=== PATIENT | female | born 2000 | race Caucasian/White ===

== ENCOUNTER 2024-12-25 20:25 | Emergency (ER) | payer BC, SELFPAY ==
[2024-12-25 20:26] VITALS: BMI 21.0
[2024-12-25 20:48] VITALS: BP 150/99; PULSE 86; RESP 18; TEMP 36.8; O2SAT 100
--- NOTE | 2024-12-25 21:30 | EDNOTE_ITS ---
Upper Respiratory Inf. RME/HPI General Chief Complaint: Flu Like Symptoms Stated Complaint: POSSIBLE STREP Time Seen by Provider: 12/25/24 21:00 Arrival date/time: 12/25/24 20:25 24F with no significant PMH presents to ED with 1 day of sore throat and nasal congestion. Limitations: no limitations Related Data Previous Rx's ?Medication ?Instructions ?Recorded albuterol sulfate 90 mcg/actuation 1 - 2 puff inhalati on Q6HR PRN 07/12/16 aerosol inhaler (ProAir HFA) WHEEZING #1 inh ibuprofen 600 mg tablet 1 tab PO Q8HR PRN pain or fe albina 07/12/16 #30 tabs Allergies Allergy/AdvReac Type Severity Reaction Status Date / Time NKA* Allergy Uncoded 07/12/16 19:10 Review of Systems Review of Systems Systems Reviewed: All systems reviewed, normal except as documented Constitutional Constitutional: Reports system reviewed and no additional complaints, except as documented, Denies fever(s) and Denies headache(s) ENT Ears, Nose, Mouth, and Throat: Reports as per HPI, Denies disequilibrium, Denies headache(s) and Reports sore throat Cardiovascular Cardiovascular: Reports system reviewed and no additional complaints, except as documented, Denies chest pain and Denies dyspnea Respiratory Respiratory: Reports system reviewed and no additional complaints, except as documented, Reports as per HPI, Reports cough and Denies dyspnea Gastrointestinal Gastrointestinal: Reports system reviewed and no additional complaints, except as documented, Denies abdominal pain, Denies nausea and Denies vomiting Neurologic Neurologic: Reports system reviewed and no additional complaints, except as documented, Denies confusion, Denies disequilibrium and Denies headache(s) Psychiatric Psychiatric: Denies confusion Past Medical History Social History SMOKING STATUS: Never smoker ED Exam General Limitations: Present no limitations General appearance: Present alert and in no apparent distress Head Head exam: Present atraumatic Eye Eye exam: Present normal appearance, PERRL and EOMI ENT ENT exam: Present mucous membranes moist Expanded ENT Exam Throat exam: Present tonsillar erythema; Absent tonsillomegaly, tonsillar exudate, R peritonsillar mass, L peritonsillar mass or muffled voice Neck Neck exam: Present normal inspection, full ROM and trachea midline Chest Chest inspection: Present normal inspection and symmetric chest wall rise Respiratory Respiratory exam: Present normal lung sounds bilaterally Cardiovascular Cardiovascular exam: Present regular rate, normal rhythm and normal heart sounds Abdominal Exam Abdominal exam: Present soft and normal bowel sounds Extremities Exam Extremities exam: Present normal inspection and full ROM Back Exam Back exam: Present normal inspection and full ROM Neurological Exam Neurological exam: Present alert, oriented X3 and CN II-XII intact Psychiatric Psychiatric exam: Present normal affect and normal mood Skin Skin exam: Present warm, dry, intact and normal color Course Quality Measures none Orders Category Date Time Status Bedside Influenza A&B Antigen Test NOW Care 12/25/24 21:00 Completed Strep A Rapid Stat Lab 12/25/24 21:38 Completed Vital Signs Vital signs: Vital Signs Temperature 98.2 F 12/25/24 20:48 Pulse Rate 86 12/25/24 20:48 Respiratory Rate 18 12/25/24 20:48 Blood Pressure 150/99 H 12/25/24 20:48 Pulse Oximetry (%) 100 12/25/24 20:48 Oxygen Delivery Method Room Air 12/25/24 20:48 O2 at 100% on RA and WNLs Upper Respiratory Infection MDM Narrative MDM Narrative:: 24F with no significant PMH presents to ED with 1 day of sore throat and nasal congestion. Physical exam reveals nasal congestion and red oropharynx, but clear lungs. Patient is afebrile, calm, and alert. Swabs neg. Likely viral URI. Patient data External records reviewed:: [facility] previous records Clinical information provided by:: patient Social determinants that could affect healthcare access:: none Patient has the following chronic illnesses:: none How is presenting disease/condition affected by chronic disease/condition?: no chronic disease Evaluation data The following diagnostics were reviewed and interpreted by me:: lab results Lab and/or radiology exams considered but not ordered:: ordered Interpretation Summary: above Medications / Prescriptions Medications or Prescriptions considered but not ordered:: not ordered Medication administrations:: n/a Consultations Consultation(s) initiated? (list below): No Diagnosis Upper Respiratory Differential Diagnosis: upper respiratory infection, croup, otitis media, sinusitis, viral infection, bronchitis, influenza and pharyngitis Most likely diagnosis given after review of the tests above:: URI Admission Indicated Admission indicated?: not indicated Admission Request Was there a request for admission?: No Disposition Plan Disposition Plan: Discharge Discharge Attestation Discharge Attestation: The patient and all family members were given an opportunity to ask questions and understood the discharge instructions. Discharge instructions specifically effects, indications for sooner follow up or return to the emergency department, and the expected course of current diagnosis. Patient condition: Stable Discharge Plan Plan Patient Disposition: HOME (Self Care) Disposition Comment: Stable Prescriptions/Referrals Prescriptions/Med Rec: No Action ibuprofen 600 MG tablet 1 tab PO Q8HR PRN (Reason: pain or fever) Qty: 30 0RF albuterol sulfate [ProAir HFA] 8.5 GM HFA aerosol inhaler 1 - 2 puff Inhalation Q6HR PRN (Reason: WHEEZING) Qty: 1 0RF Rx Instructions: Please give and use spacer Problem List Clinical Impression: Upper respiratory infection Patient/Caregiver Discharge Instructions Education Materials: ED URI, Viral, No Abx (Adult) Additional Instructions: Please follow-up with PCP within 24-48 hours and return immediately if symptoms worsen. Ibuprofen/Tylenol can be used simultaneously for greater fever/pain control. Benadryl is good for cough, congestion, and sleep. Print Language: Georgian Stand Alone Forms: Patient Portal Info Letter PEGGY/PURNIMA Supervising Physician PEGGY/PURNIMA Supervising Physician: Dr. Scott
[2024-12-25 23:01] LABS: Strep A Rapid Negative (Negative)
== END 2024-12-26 | disposition home or self-care (01) ==
LOC: SERX 23:50
PROVIDERS: Physician Assistant; Emergency Provider Emergency Medicine
DX: J06.9 Acute upper respiratory infection, unspecified (principal)
CPT/HCPCS: 87400; 87651; 99283

== ENCOUNTER 2025-06-24 22:14 | Emergency (ER) | payer BC, SELFPAY ==
[2025-06-24 22:19] VITALS: BMI 21.0
[2025-06-24 22:42] VITALS: BP 117/81; PULSE 98; RESP 19; TEMP 36.7; O2SAT 100
--- NOTE | 2025-06-24 23:16 | XR_ITS ---
Examination: PA chest single view TECHNIQUE: Upright PA chest single view Date and time: June 24, 2025 11:39 PM Comparison February 28, 2006 INDICATIONS: Chest pain shortness of breath beginning 3 days ago. FINDINGS: Normal heart size. Lungs are clear. Osseous structures are intact. IMPRESSION: No active disease
[2025-06-24 23:48] LABS: Basophils # (Auto) 0.1 Thou/mm3 (0.0-0.2); Basophils % (Auto) 1 % (0-2.5); Eosinophils # (Auto) 0.2 Thou/mm3 (0.0-0.5); Eosinophils % (Auto) 3 % (0-10); Hematocrit 46.8 % (36.0-46.0); Hemoglobin 15.8 g/dL (12.0-16.0); Immature Granulocytes Auto 0.03 Thou/mm3 (0.00-0.00); Lymphocytes # (Auto) 3.2 Thou/mm3 (1.0-4.8); Lymphocytes % (Auto) 36 % (10-50); Mean Corpuscular HGB Conc 33.8 g/dl (31.0-37.0); Mean Corpuscular Hemoglobin 28.5 pg (25.0-35.0); Mean Corpuscular Volume 85 fL (80-100); Monocytes # (Auto) 1.0 Thou/mm3 (0.0-0.8); Monocytes % (Auto) 11 % (0-12); Neutrophils # (Auto) 4.4 Thou/mm3 (1.8-7.7); Neutrophils % (Auto) 50 % (37-80); Nucleated Red Blood Cell # 0.00 Thou/mm3 (0.00-0.00); Nucleated Red Blood Cell % 0 /100 WBC (0); Platelet Count 342 Thou/mm3 (140-440); RDW Standard Deviation 40.4 fL (36.4-46.3); Red Blood Count 5.54 Miln/mm3 (4.00-5.20); White Blood Count 8.8 Thou/mm3 (3.6-11.0)
[2025-06-25 00:07] LABS: Alanine Aminotransferase 27 U/L (10-49); Albumin, Serum 5.6 gm/dL (3.5-5.0); Albumin/Globulin Ratio 2.3 (1.2-2.2); Alkaline Phosphatase 72 U/L (46-116); Anion Gap 12 (7-16); Aspartate Amino Transferase 33 U/L (0-34); BUN/Creatinine Ratio 9 Ratio (12-20); Bilirubin,Total 0.5 mg/dL (0.3-1.2); Blood Urea Nitrogen 7 mg/dL (9-23); Calcium 10.6 mg/dL (8.3-10.6); Calcium (Corrected) 10.6 mg/dL (8.5-10.1); Carbon Dioxide 23.0 mMol/L (20.0-31.0); Chloride 107 mMol/L (98-107); Creatinine (Component) 0.8 mg/dL (0.6-1.3); Estimated Creatinine Clearance 85.8 mL/min (>60); Globulin 2.4 gm/dL (2.3-3.5); Glucose 97 mg/dL (74-106); Magnesium 2.0 mg/dL (1.6-2.6); Osmolality,Calculated 281 (275-295); Potassium 3.1 mMol/L (3.4-5.1); Sodium 142 mMol/L (136-145); Total Protein 8.0 gm/dL (5.7-8.2); Troponin I < 0.002 ng/mL (0.0-0.045); eGFR > 60 See Note
[2025-06-25 00:10] VITALS: PULSE 97
[2025-06-25 00:15] LABS: D-Dimer < 250 ng/mL (<600)
[2025-06-25 00:33] VITALS: BP 132/92; PULSE 100; RESP 18; TEMP 36.7; O2SAT 100
[2025-06-25 02:03] VITALS: BP 121/83; PULSE 85; RESP 18; TEMP 36.3; O2SAT 100
--- NOTE | 2025-06-25 05:00 | PD.EDSOB ---
ED SOB =RME/HPI General Chief Complaint: Shortness of Breath/Dyspnea Stated Complaint: DYSPNEA Time Seen by Provider: 06/24/25 23:14 Arrival date/time: 06/24/25 22:14 24F with history of asthma presents to ED with 3 days of intermittent SOB. Inhaler does not help. Patient denies history of anxiety/panic attacks. Limitations: no limitations Related Data Previous Rx's ?Medication ?Instructions ?Recorded albuterol sulfate 90 mcg/actuation 1 - 2 puff inhalation Q6HR PRN 07/12/16 aerosol inhaler (ProAir HFA) WHEEZING #1 inh ibuprofen 600 mg tablet 1 tab PO Q8HR PRN pain or fever 07/12/16 #30 tabs Allergies Allergy/AdvReac Type Severity Reaction Status Date / Time NKA* Allergy Uncoded 07/12/16 19:10 Review of Systems Review of Systems Systems Reviewed: All systems reviewed, normal except as documented Constitutional Constitutional: Reports system reviewed and no additional complaints, except as documented, Denies fever(s) and Denies headache(s) ENT Ears, Nose, Mouth, and Throat: Denies disequilibrium and Denies headache(s) Cardiovascular Cardiovascular: Reports system reviewed and no additional complaints, except as documented, Denies chest pain and Reports dyspnea Respiratory Respiratory: Reports system reviewed and no additional complaints, except as documented, Reports as per HPI, Denies cough and Reports dyspnea Gastrointestinal Gastrointestinal: Reports system reviewed and no additional complaints, except as documented, Denies abdominal pain, Denies nausea and Denies vomiting Neurologic Neurologic: Reports system reviewed and no additional complaints, except as documented, Denies confusion, Denies disequilibrium and Denies headache(s) Psychiatric Psychiatric: Denies confusion Past Medical History Past Medical History CARDIAC: Negative Congestive Heart Failure RESPIRATORY: Negative Chronic Obstructive Pulmonary Disease (COPD) GENITOURINARY: Negative Renal Disease ENDOCRINE: Negative Diabetes Mellitus Type 1 or Diabetes Mellitus Type 2 Social History SMOKING STATUS: Never smoker ED Exam General Limitations: Present no limitations General appearance: Present alert, in no apparent distress and anxious (mild) Head Head exam: Present atraumatic Eye Eye exam: Present normal appearance, PERRL and EOMI ENT ENT exam: Present normal exam, normal oropharynx and mucous membranes moist Neck Neck exam: Present normal inspection, full ROM and trachea midline Chest Chest inspection: Present normal inspection and symmetric chest wall rise Respiratory Respiratory exam: Present normal lung sounds bilaterally Cardiovascular Cardiovascular exam: Present regular rate, normal rhythm and normal heart sounds Abdominal Exam Abdominal exam: Present soft and normal bowel sounds Extremities Exam Extremities exam: Present normal inspection and full ROM Back Exam Back exam: Present normal inspection and full ROM Neurological Exam Neurological exam: Present alert, oriented X3 and CN II-XII intact Psychiatric Psychiatric exam: Present normal affect and normal mood Skin Skin exam: Present warm, dry, intact and normal color Course Quality Measures none Orders Category Date Time Status Bathhouse Attendant Q4H START 00 Care 06/24/25 23:16 Completed EKG (ED ONLY) *Do not use* NOW Care 06/24/25 22:28 Completed EKG (ED Only) Stat Exams 06/24/25 22:28 Ordered XR chest 1V portable Stat Exams 06/24/25 23:16 Completed CBC Stat Lab 06/24/25 23:25 Completed Comprehensive Metabolic Panel Stat Lab 06/24/25 23:25 Completed D-Dimer Stat Lab 06/24/25 23:25 Completed Mag [Magnesium] Stat Lab 06/24/25 23:25 Completed Troponin I Stat Lab 06/24/25 23:25 Completed Potassium Chloride [K-Dur] Med 06/25/25 00:12 Discontinued 40 meq PO X1 ONE Vital Signs Vital signs: Vital Signs Temperature 98.1 F 06/24/25 22:42 Pulse Rate 98 06/24/25 22:42 Respiratory Rate 19 06/24/25 22:42 Blood Pressure 117/81 06/24/25 22:42 Pulse Oximetry (%) 100 06/24/25 22:42 Oxygen Delivery Method Room Air 06/24/25 22:42 O2 at 100% on RA and WNLs Shortness of Breath / Dyspnea MDM Narrative MDM Narrative:: 24F with history of asthma presents to ED with 3 days of intermittent SOB. Inhaler does not help. Patient denies history of anxiety/panic attacks. Physical exam reveals increased WOB, but clear lungs. Patient is afebrile, alert, but mildly anxious. EKG is NSR. CXR unremarkable. Normal trop and D-dimer. No leukocytosis or gross anemia. Mildly low K (but not low enough to cause these symptoms), repleted. Mag normal. After 2 hours observation, no neg change. Likely due to anxiety. Finish Remover given. Patient data External records reviewed:: [facility] previous records Clinical information provided by:: patient Social determinants that could affect healthcare access:: none Patient has the following chronic illnesses:: none How is presenting disease/condition affected by chronic disease/condition?: no chronic disease Evaluation data The following diagnostics were reviewed and interpreted by me:: lab results, radiology exam(s) and EKG tracing(s) Lab and/or radiology exams considered but not ordered:: ordered Interpretation Summary: above Medications / Prescriptions Medications or Prescriptions considered but not ordered:: ordered Medication administrations:: Medication Administration History Discontinued Medications Potassium Chloride (Potassium Chloride 20 Meq Tabcr) 40 meq PO X1 ONE Stop: 06/25/25 00:13 Last Admin: 06/25/25 00:16 Dose: 40 meq Documented By: [email or web address] above Consultations Consultation(s) initiated? (list below): No Diagnosis Shortness of Breath Differential Diagnosis: acute exacerbation of chronic obstructive airways disease, congestive heart failure, community acquired pneumonia, asthma with exacerbation, pulmonary embolism and other (dyspnea) Most likely diagnosis given after review of the tests above:: dyspnea Admission Indicated Admission indicated?: not indicated Admission Request Was there a request for admission?: No Disposition Plan Disposition Plan: Discharge Discharge Attestation Discharge Attestation: The patient and all family members were given an opportunity to ask questions and understood the discharge instructions. Discharge instructions specifically effects, indications for sooner follow up or return to the emergency department, and the expected course of current diagnosis. Patient condition: Stable Discharge Plan Plan Patient Disposition: HOME (Self Care) Discharge Disposition comment: Stable Prescriptions/Referrals Prescriptions/Med Rec: No Action ibuprofen 600 MG tablet 1 tab PO Q8HR PRN (Reason: pain or fever) Qty: 30 0RF albuterol sulfate [ProAir HFA] 8.5 GM HFA aerosol inhaler 1 - 2 puff Inhalation Q6HR PRN (Reason: WHEEZING) Qty: 1 0RF Rx Instructions: Please give and use spacer Referrals: Gissel Garcia MD [Primary Care Provider] - In 1 week Problem List Clinical Impression: Dyspnea Patient/Caregiver Discharge Instructions Education Materials: ED Shortness of Breath (Dyspnea) Additional Instructions: Please follow-up with PCP within 24-48 hours and return immediately if symptoms worsen. Print Language: Yoruba Stand Alone Forms: Patient Portal Info Letter PEGGY/PURNIMA Supervising Physician PEGGY/PURNIMA Supervising Physician: Dr. Bañuelos
== END 2025-06-25 02:09 | disposition home or self-care (01) ==
PROVIDERS: Physician Assistant; Emergency Provider Emergency Medicine; PCP Family Medicine
DX: R06.02 Shortness of breath (principal)
CPT/HCPCS: 36415; 71045; 80053; 83735; 84484; 85025; 85379; 93005; 99283; A9270

== ENCOUNTER 2025-06-25 08:08 | Emergency (ER) | payer BC, SELFPAY ==
[2025-06-25 08:09] VITALS: BMI 21.0
[2025-06-25 08:19] VITALS: BP 104/64; PULSE 101; RESP 19; TEMP 36.7; O2SAT 100
--- NOTE | 2025-06-25 08:33 | PD.EDADULT ---
ED General RME/HPI General Chief complaint: Shortness of Breath/Dyspnea Stated complaint: SOB THAT WORSEN TODAY Time Seen by Provider: 06/25/25 08:19 Arrival date/time: 06/25/25 08:08 CC: Shortness of breath with subjective fever HPI onset last night was seen here last night at 11 PM had an extensive workup now returns speaking in full sentences normal saturations normal vital signs history of anxiety. Related Data Previous Rx's ?Medication ?Instructions ?Recorded albuterol sulfate 90 mcg/actuation 1 - 2 puff inhalation Q6HR PRN 07/12/16 aerosol inhaler (ProAir HFA) WHEEZING #1 inh ibuprofen 600 mg tablet 1 tab PO Q8HR PRN pain or fever 07/12/16 #30 tabs prednisone 10 mg tablet See Taper PO BID #4 tabs 06/25/25 Allergies Allergy/AdvReac Type Severity Reaction Status Date / Time NKA* Allergy Uncoded 06/25/25 08:09 Review of Systems Review of Systems Narrative Review of Systems: GEN: No fever, no chills, no weight loss EYES: No discharge, no visual changes, no pain HEENT: No ear pain, no congestion, no sore throat PULM: + shortness of breath, no cough, no congestion CV: No chest pain, no dyspnea on exertion, no palpitations GI: No nausea, no vomiting, no diarrhea, no pain, no constipation : No frequency, no urgency, no dysuria MUSC/SKEL: No joint pain, no back pain SKIN: No rash PSYCH: No hallucinations, no depression HEME/LYMPH: No easy bleeding or bruising tendencies NEURO: No weakness, no headache Past Medical History Past Medical History CARDIAC: Negative Congestive Heart Failure RESPIRATORY: Negative Chronic Obstructive Pulmonary Disease (COPD) GENITOURINARY: Negative Renal Disease ENDOCRINE: Negative Diabetes Mellitus Type 1 or Diabetes Mellitus Type 2 Social History SMOKING STATUS: Never smoker ED Exam Narrative Physical exam: [General: Anxious, not in any acute distress Head normocephalic HEENT: Within acceptable limits Neck is supple nontender, no stridor Chest equal chest rise nontender to palpation Respiratory: Clear to auscultation no wheezes crackles or rubs, no tachypnea CV: Rate rhythm is regular no murmurs rubs or clicks Abdomen is soft nontender no masses positive bowel sounds all 4 quadrants Back: No CVA tenderness no spinous process tenderness from cervical spine thoracic and lumbar spine Skin: Intact no petechiae rash induration ulceration or crepitus Extremities: Moving all extremity against resistance cap refill less than 2 seconds neurosensory intact Neuro: Awake alert oriented x3 Glascow coma 15 no focal deficits] Course Quality Measures none Vital Signs Vital signs: Vital Signs Temperature 98.0 F 06/25/25 08:19 Pulse Rate 101 H 06/25/25 08:19 Respiratory Rate 19 06/25/25 08:19 Blood Pressure 104/64 06/25/25 08:19 Pulse Oximetry (%) 100 06/25/25 08:19 Oxygen Delivery Method Room Air 06/25/25 08:19 Discharge Plan Plan Patient Disposition: HOME (Self Care) Patient condition on transfer: Stable Prescriptions/Referrals Prescriptions/Med Rec: New prednisone 10 mg tablet See Taper PO BID Qty: 4 0RF Taper: Prednisone Taper 20 mg DAILY for 2 Days and 0 Hour 10 mg DAILY for 2 Days and 0 Hour 5 mg DAILY for 7 Days and 0 Hour No Action ibuprofen 600 MG tablet 1 tab PO Q8HR PRN (Reason: pain or fever) Qty: 30 0RF albuterol sulfate [ProAir HFA] 8.5 GM HFA aerosol inhaler 1 - 2 puff Inhalation Q6HR PRN (Reason: WHEEZING) Qty: 1 0RF Rx Instructions: Please give and use spacer Referrals: Chris Jeter MD [Physician] - In 1 week Problem List Clinical Impression: Anxiety, Shortness of breath Patient/Caregiver Discharge Instructions Education Materials: Anxiety Disorders Tx Therapy, ED Shortness of Breath (Dyspnea) Additional Instructions: Follow-up with biofeedback for the anxiety the medications may remain at [facility] follow-up with your primary care provider Print Language: Armenian Stand Alone Forms: Elsy Award Info., Work/School Release, Patient Portal Info Letter PA/STERILE PROCESSING TECHNOLOGIST Supervising Physician PA/STERILE PROCESSING TECHNOLOGIST Supervising Physician: Dwight Garcia ENP, MD Attestation MD Attestation The patient was seen by the midlevel practitioner. I, the co-signing physician, was present during the entire ER visit. While I did not physically examine the patient, I was available for consultation as needed. I agree with the plan and documentation. MDM Clinical Information Provided by patient Medical Records Reviewed [facility] Meds/Rx Considered, not Ordered None Labs/Rad/Tests considered, not Ordered None Chronic Illness/Social Conditions which may negatively complicate care or outcome(s)-explain: None or not applicable EKG EKG not done Lab Interpretation Labs: none Imaging Imaging interpretation: none Medication Administration(s) none Diagnosis Differential diagnosis: Anxiety, somatization, asthma exacerbation Most likely dx, and/or detailed dx discussion: This patient has no acute findings clear lungs not in any acute distress and speaking in full sentences at this time I suspect this is mostly anxiety we will put her on a short course of steroids to follow-up with her primary care doctor. Dispositon Disposition: Discharge Home
== END 2025-06-25 08:46 | disposition home or self-care (01) ==
LOC: SERX 08:56
PROVIDERS: Emergency Provider Family Medicine; PCP Family Medicine
DX: R06.02 Shortness of breath (principal); F41.9 Anxiety disorder, unspecified
CPT/HCPCS: 99282